=== PATIENT | male | born 1980 | race Hispanic/Latino ===

== ENCOUNTER 2023-05-26 00:26 | Inpatient (IN) | payer OTHER ==
[~2023-05-26] VITALS: Ht 188 cm; Wt 110.4 kg
[2023-05-26] VITALS (73 sets, daily range): BP systolic 95–134; BP diastolic 47–71; PULSE 66–103; RESP 13–18; O2SAT 97–100
[2023-05-26 01:19] LABS: BASOPHILS # (AUTO) 0.01 K/uL (0.00-0.20); BASOPHILS % (AUTO) 0.1 % (0.0-5.0); EOSINOPHILS # (AUTO) 0.14 K/uL (0.00-0.70); EOSINOPHILS % (AUTO) 1.2 % (0.0-8.0); IMMATURE GRANULOCYTE ABSOLUTE 0.54 K/uL (0-1); LYMPHOCYTES % (AUTO) 17.3 % (21.0-51.0); MEAN CORPUSCULAR HEMOGLOBIN 15.4 pg (27.0-33.0); MEAN CORPUSCULAR HGB CONC 24.2 g/dL (32.0-36.0); MEAN CORPUSCULAR VOLUME 63.8 fL (79-99); MONOCYTES # (AUTO) 1.9 K/uL (0.1-1.0); MONOCYTES % (AUTO) 16.8 % (3.0-13.0); NEUTROPHILS # (AUTO) 6.9 K/uL (1.8-7.7); NEUTROPHILS % (AUTO) 59.9 % (40.0-77.0); NUCLEATED RED BLOOD CELLS 7.3 % (0.0-0.19); PLATELET COUNT (AUTO) 125 K/uL (130-400); RED BLOOD CELL COUNT(AUTO) 1.88 MIL/uL (4.50-6.20); RED CELL DISTRIBUTION WIDTH 19.6 % (11.0-15.5); WHITE BLOOD COUNT (AUTO) 11.5 K/uL (4.8-10.8)
[2023-05-26] MEDS ORDERED: PANTOPRAZOLE 40 MG/VIAL ONE ×2 (01:25→06:07)
[2023-05-26] MEDS ORDERED: OCTREOTIDE ACETATE 100 MCG/ML AMP ONE (01:26)
[2023-05-26] MEDS ORDERED: OCTREOTIDE ACETATE 200 MCG/ML 5 ML VIAL ONE (01:27)
[2023-05-26 01:30] LABS: CREATININE 0.9 mg/dL (0.5-1.5); INR 1.42 (0.85-1.15); POTASSIUM 3.4 mmol/L (3.5-5.1); PROTHROMBIN TIME 16.1 SEC (9.6-11.6)
[2023-05-26] MEDS ORDERED: PANTOPRAZOLE 40MG INJ 80 MG in 0.9%NACL 100ML 100 ML IV SCH (01:30)
[2023-05-26] MEDS ORDERED: OCTREOTIDE ACETATE 1,250 MCG in 0.9% NACL 250ML 250 ML IV SCH (01:30)
[2023-05-26] MEDS ORDERED: NOREPINEPHRIN 4MG/NS 250ML 250 ML IV SCH (01:30)
[2023-05-26 01:32] LABS: PARTIAL THROMBOPLASTIN TIME 29.3 SEC (26.3-35.5)
[2023-05-26 01:35] LABS: ALBUMIN 1.9 g/dL (3.5-5.0); BILIRUBIN,TOTAL 0.7 mg/dL (0.2-1.0); TOTAL PROTEIN, SERUM 4.8 g/dL (6.0-8.3)
[2023-05-26] MEDS ORDERED: ROCURONIUM BROMIDE 100 MG in 0.9%NACL 100ML 100 ML IV SCH (01:35)
[2023-05-26] MEDS ORDERED: ETOMIDATE 20MG VIAL IVP ONE ×2 (01:35→09:13)
[2023-05-26 01:46] LABS: BAND NEUTROPHILS % (MANUAL) 5 % (0-2); BASOPHILS % (MANUAL) 1 % (0-2); LYMPHOCYTES % (MANUAL) 12 % (22-44); MAN.DIFF COMMENT-IMPRESSION MANUAL DIFFERENTIAL; METAMYELOCYTES % 4 % (0-0); MONOCYTES % (MANUAL) 9 % (2-9); SEGMENTED NEUTROPHILS % 69 % (40-70); TOTAL CELLS COUNTED 100
[2023-05-26] MEDS: MIDAZOLAM 50MG-0.9% NS 50ML 50 ML IV SCH ×4 (01:50→19:39)
[2023-05-26] MEDS: FENTANYL 1000MCG+NS 100ML 100 ML IV SCH ×5 (01:50→19:39)
[2023-05-26] MEDS ORDERED: CALCIUM GLUC 1GM/10ML VIAL ONE (02:08)
[2023-05-26] MEDS ORDERED: POTASSIUM CHLORIDE 20MEQ/100ML 100 ML IV PRN ×3 (02:30→08:00)
[2023-05-26] MEDS ORDERED: ONDANSETRON 4MG INJ IV PRN (02:30)
[2023-05-26] MEDS ORDERED: 0.9%NACL 1000ML 1,000 ML IV SCH (02:30)
[2023-05-26] MEDS ORDERED: ACETAMINOPHEN 325 MG TAB PO PRN ×2 (02:30)
[2023-05-26] MEDS ORDERED: PHYTONADIONE 10 MG/1 ML AMP IM ONE (02:30)
[2023-05-26 02:31] LABS: APPEARANCE,URINE CLEAR (CLEAR); BILIRUBIN,URINE NEGATIVE (NEGATIVE); COLOR,URINE YELLOW (YELLOW); GLUCOSE, URINE (UA) NEGATIVE (NEGATIVE); KETONES,URINE NEGATIVE (NEGATIVE); LEUKOCYTE ESTERASE ,URINE NEGATIVE Leu/uL (NEGATIVE); NITRATE,URINE NEGATIVE (NEGATIVE); OCCULT BLOOD,URINE NEGATIVE (NEGATIVE); PROTEIN,URINE 30 mg/dL (NEGATIVE); UROBILINOGEN,URINE 0.2 mg/dL (0.2-1.0)
[2023-05-26 02:34] LABS: ADD UA MICROSCOPIC YES
[2023-05-26 02:35] LABS: MUCUS,URINE RARE LPF (None Seen)
[2023-05-26 02:39] LABS: AMPHET/METH SCREEN,URINE POSITIVE (NEGATIVE); BARBITURATE SCREEN, URINE NEGATIVE (NEGATIVE); BENZODIAZEPINES SCREEN,URINE POSITIVE (NEGATIVE); CANNABINOID SCREEN,URINE POSITIVE (NEGATIVE); COCAINE SCREEN,URINE POSITIVE (NEGATIVE); OPIATE SCREEN,URINE NEGATIVE (NEGATIVE); PHENCYCLIDINE SCREEN,URINE NEGATIVE (NEGATIVE)
[2023-05-26 02:43] LABS: ABG BASE EXCESS -3.5 mmol/L (-2.0-3.0); ABG HCO3 21.9 mmol/L (21.0-28.0); ABG OXYGEN SATURATION 98.4 % (95.0-99.0); ABG PCO2 40 mmHg (35-48); ABG PH 7.351 (7.35-7.450); PO2, ARTERIAL BG 125.4 mmHg (83.0-108.0); VENT MODE, BG ACVC (ROOM AIR)
[2023-05-26] MEDS ORDERED: CALCIUM GLUC 1GM/10ML VIAL IV ONE (03:00)
[2023-05-26] MEDS ORDERED: OCTREOTIDE ACETATE 100 MCG/ML AMP IV ONE (03:00)
[2023-05-26] MEDS: PANTOPRAZOLE 40MG INJ 80 MG in 0.9%NACL 100ML 100 ML IVP SCH ×3 (03:07→08:48)
[2023-05-26] MEDS: OCTREOTIDE ACETATE 1,250 MCG in 0.9% NACL 250ML 250 ML IV SCH ×2 (03:07→08:46)
[2023-05-26] MEDS: CALCIUM GLUC 1GM 1 GM in 0.9%NACL 100ML 100 ML IV SCH ×2 (03:08→03:27)
[2023-05-26] MEDS: LACTATED RINGERS 1000ML 1,000 ML IV SCH ×3 (03:27→23:10)
[2023-05-26] MEDS ORDERED: CEFTRIAXONE 1G VIAL IVPB ONE (03:30)
[2023-05-26] MEDS ORDERED: PROPOFOL 1000 MG/100 ML 100 ML IV ONE (03:39)
[2023-05-26 03:58] LABS: BASOPHILS # (AUTO) 0.01 K/uL (0.00-0.20); BASOPHILS % (AUTO) 0.1 % (0.0-5.0); EOSINOPHILS # (AUTO) 0.06 K/uL (0.00-0.70); EOSINOPHILS % (AUTO) 0.7 % (0.0-8.0); LYMPHOCYTES # (AUTO) 1.2 K/uL (1.0-4.8); LYMPHOCYTES % (AUTO) 15.3 % (21.0-51.0); MEAN CORPUSCULAR HEMOGLOBIN 21.5 pg (27.0-33.0); MEAN CORPUSCULAR HGB CONC 29.6 g/dL (32.0-36.0); MEAN CORPUSCULAR VOLUME 72.7 fL (79-99); NEUTROPHILS # (AUTO) 5.3 K/uL (1.8-7.7); NEUTROPHILS % (AUTO) 65.9 % (40.0-77.0); NUCLEATED RED BLOOD CELLS 4.6 % (0.0-0.19); PLATELET COUNT (AUTO) 101 K/uL (130-400); RED BLOOD CELL COUNT(AUTO) 2.56 MIL/uL (4.50-6.20); RED CELL DISTRIBUTION WIDTH 26.5 % (11.0-15.5)
[2023-05-26] MEDS ORDERED: PROPOFOL 1000 MG/100 ML 1,000 MG in PROPOFOL 1000 MG/100 ML 100 ML IV PRN (04:00)
[2023-05-26 04:08] LABS: HEMATOCRIT 18.6 % (42-54)
[2023-05-26 04:16] LABS: INR 1.34 (0.85-1.15); PROTHROMBIN TIME 15.3 SEC (9.6-11.6)
[2023-05-26 04:32] LABS: ALBUMIN 2.1 g/dL (3.5-5.0); BILIRUBIN,TOTAL 1.3 mg/dL (0.2-1.0); CREATININE 0.7 mg/dL (0.5-1.5); MAGNESIUM 1.6 mg/dL (1.80-2.40); POTASSIUM 3.9 mmol/L (3.5-5.1)
[2023-05-26] MEDS ORDERED: IOHEXOL-350 75 ML VIAL IV ONE (04:33)
[2023-05-26] MEDS ORDERED: PHARMACY COMMUNICATION MISC PRN (08:00)
[2023-05-26] MEDS ORDERED: KCL 20 MEQ ERTAB PO PRN (08:00)
[2023-05-26] MEDS ORDERED: CHLORDIAZEPOXIDE HCL 25 MG CAP PO PRN ×2 (08:00)
[2023-05-26] MEDS ORDERED: MAGNESIUM 2GM PREMIX 50ML 50 ML IV PRN (08:00)
[2023-05-26] MEDS ORDERED: LORAZEPAM 2 MG/ML 1 ML VIAL IVP PRN ×2 (08:00)
[2023-05-26 08:08] LABS: HEMATOCRIT 24.1 % (42-54)
[2023-05-26 08:11] LABS: ABG BASE EXCESS -4.2 mmol/L (-2.0-3.0); ABG HCO3 21.2 mmol/L (21.0-28.0); ABG OXYGEN SATURATION 98.1 % (95.0-99.0); ABG PCO2 40 mmHg (35-48); ABG PH 7.341 (7.35-7.450); CARBON MONOXIDE 1.6; HHb 1.9; PO2, ARTERIAL BG 125.8 mmHg (83.0-108.0); VENT MODE, BG RR (ROOM AIR)
[2023-05-26] MEDS: FOLIC ACID 5 MG/ML VIAL IV SCH (08:40)
[2023-05-26] MEDS: THIAMINE HCL 100 MG, FOLIC ACID 1 MG, M.V.I. IV [ADULT] 10 ML in 0.9%NACL 1000ML 1,000 ML IV SCH (08:42)
[2023-05-26] MEDS: THIAMINE HCL 100 MG/ML 2ML VIAL IVP SCH (08:44)
[2023-05-26] MEDS ORDERED: ROCURONIUM BROMIDE 10MG/1ML 5ML VL IV ONE (09:13)
[2023-05-26] MEDS: MAGNESIUM 2GM PREMIX 50ML 50 ML IV PRN (13:01)
[2023-05-26 13:14] LABS: HEMATOCRIT 23.2 % (42-54)
[2023-05-26 18:16] LABS: HEMATOCRIT 21.9 % (42-54)
[2023-05-26] MEDS ORDERED: COMPOUND IV REFRIGERATED 1 EACH IVSOLN MISC PRN (20:00)
[2023-05-26] MEDS ORDERED: PHARMACY COMMUNICATION MISC SCH (20:00)
[2023-05-26] MEDS: ZOSYN 3.375GM +NS 50ML IVPB SCH (23:58)
[2023-05-27] VITALS (63 sets, daily range): BP systolic 93–127; BP diastolic 50–72; PULSE 68–82; RESP 10–25; O2SAT 94–100
[2023-05-27] MEDS ORDERED: 0.9%NACL 50ML IV SCH
[2023-05-27 01:17] LABS: HEMATOCRIT 23.3 % (42-54)
[2023-05-27] MEDS: PANTOPRAZOLE 40MG INJ 80 MG in 0.9%NACL 100ML 100 ML IVP SCH (02:26)
[2023-05-27] MEDS: FENTANYL 1000MCG+NS 100ML 100 ML IV SCH (04:51)
[2023-05-27] MEDS: MIDAZOLAM 50MG-0.9% NS 50ML 50 ML IV SCH (06:02)
[2023-05-27 06:39] LABS: BASOPHILS # (AUTO) 0.03 K/uL (0.00-0.20); BASOPHILS % (AUTO) 0.4 % (0.0-5.0); EOSINOPHILS # (AUTO) 0.24 K/uL (0.00-0.70); EOSINOPHILS % (AUTO) 3.2 % (0.0-8.0); HEMATOCRIT 25.1 % (42-54); LYMPHOCYTES # (AUTO) 1.6 K/uL (1.0-4.8); LYMPHOCYTES % (AUTO) 21.8 % (21.0-51.0); MEAN CORPUSCULAR HEMOGLOBIN 24.5 pg (27.0-33.0); MEAN CORPUSCULAR HGB CONC 31.5 g/dL (32.0-36.0); MONOCYTES % (AUTO) 13.8 % (3.0-13.0); NEUTROPHILS # (AUTO) 4.5 K/uL (1.8-7.7); NEUTROPHILS % (AUTO) 59.5 % (40.0-77.0); NUCLEATED RED BLOOD CELLS 5.6 % (0.0-0.19); PLATELET COUNT (AUTO) 87 K/uL (130-400); RED BLOOD CELL COUNT(AUTO) 3.22 MIL/uL (4.50-6.20); RED CELL DISTRIBUTION WIDTH 22.5 % (11.0-15.5); WHITE BLOOD COUNT (AUTO) 7.5 K/uL (4.8-10.8)
[2023-05-27] MEDS: LACTATED RINGERS 1000ML 1,000 ML IV SCH ×3 (06:40→19:30)
[2023-05-27 07:01] LABS: ALBUMIN 2.1 g/dL (3.5-5.0); BILIRUBIN,TOTAL 1.7 mg/dL (0.2-1.0); CREATININE 0.7 mg/dL (0.5-1.5); TOTAL PROTEIN, SERUM 4.9 g/dL (6.0-8.3)
[2023-05-27 07:22] LABS: BAND NEUTROPHILS % (MANUAL) 1 % (0-2); BASOPHILS % (MANUAL) 1 % (0-2); EOSINOPHILS % (MANUAL) 3 % (1-6); LYMPHOCYTES % (MANUAL) 19 % (22-44); MAN.DIFF COMMENT-IMPRESSION MANUAL DIFFERENTIAL; MONOCYTES % (MANUAL) 11 % (2-9); PLATELET MORPHOLOGY COMMENT DECREASED; SEGMENTED NEUTROPHILS % 65 % (40-70); TOTAL CELLS COUNTED 100
[2023-05-27] MEDS: ZOSYN 3.375GM +NS 50ML IVPB SCH ×3 (07:40→23:07)
[2023-05-27] MEDS: THIAMINE HCL 100 MG/ML 2ML VIAL IVP SCH (07:40)
[2023-05-27] MEDS: PANTOPRAZOLE 40 MG/VIAL IVP SCH ×2 (08:32→21:05)
[2023-05-27] MEDS: FOLIC ACID 5 MG/ML VIAL IV SCH (08:32)
[2023-05-27] MEDS: THIAMINE HCL 100 MG, FOLIC ACID 1 MG, M.V.I. IV [ADULT] 10 ML in 0.9%NACL 1000ML 1,000 ML IV SCH (08:34)
[2023-05-27 11:56] LABS: HEMATOCRIT 23.2 % (42-54)
[2023-05-27 12:35] LABS: ABG BASE EXCESS -2.4 mmol/L (-2.0-3.0); ABG OXYGEN SATURATION 96.2 % (95.0-99.0); ABG PCO2 37 mmHg (35-48); DEVICE COMMENT RR; PO2, ARTERIAL BG 83.4 mmHg (83.0-108.0); VENT MODE, BG CPAP PS10 (ROOM AIR)
[2023-05-27 21:20] LABS: HEMATOCRIT 24.3 % (42-54)
[2023-05-28] VITALS (23 sets, daily range): BP systolic 113–147; BP diastolic 62–88; PULSE 79–88; RESP 15–29; O2SAT 92–95
[2023-05-28] MEDS: LACTATED RINGERS 1000ML 1,000 ML IV SCH ×2 (03:15→11:22)
[2023-05-28] MEDS: OCTREOTIDE ACETATE 1,250 MCG in 0.9% NACL 250ML 250 ML IV SCH (03:16)
[2023-05-28 04:03] LABS: ALBUMIN 1.9 g/dL (3.5-5.0); CREATININE 0.7 mg/dL (0.5-1.5); MAGNESIUM 1.8 mg/dL (1.80-2.40); POTASSIUM 3.5 mmol/L (3.5-5.1)
[2023-05-28 04:08] LABS: BASOPHILS # (AUTO) 0.02 K/uL (0.00-0.20); BASOPHILS % (AUTO) 0.4 % (0.0-5.0); EOSINOPHILS # (AUTO) 0.14 K/uL (0.00-0.70); EOSINOPHILS % (AUTO) 2.5 % (0.0-8.0); HEMATOCRIT 25.1 % (42-54); IMMATURE GRANULOCYTE ABSOLUTE 0.09 K/uL (0-1); LYMPHOCYTES # (AUTO) 1.3 K/uL (1.0-4.8); MEAN CORPUSCULAR HEMOGLOBIN 24.3 pg (27.0-33.0); MEAN CORPUSCULAR HGB CONC 31.1 g/dL (32.0-36.0); MEAN CORPUSCULAR VOLUME 78.2 fL (79-99); MONOCYTES # (AUTO) 0.7 K/uL (0.1-1.0); MONOCYTES % (AUTO) 11.9 % (3.0-13.0); NEUTROPHILS # (AUTO) 3.4 K/uL (1.8-7.7); NEUTROPHILS % (AUTO) 60.6 % (40.0-77.0); NUCLEATED RED BLOOD CELLS 2.8 % (0.0-0.19); PLATELET COUNT (AUTO) 83 K/uL (130-400); RED BLOOD CELL COUNT(AUTO) 3.21 MIL/uL (4.50-6.20); RED CELL DISTRIBUTION WIDTH 23.9 % (11.0-15.5); WHITE BLOOD COUNT (AUTO) 5.6 K/uL (4.8-10.8)
[2023-05-28] MEDS: ZOSYN 3.375GM +NS 50ML IVPB SCH (08:10)
[2023-05-28] MEDS: THIAMINE HCL 100 MG/ML 2ML VIAL IVP SCH (08:10)
[2023-05-28] MEDS: FOLIC ACID 5 MG/ML VIAL IV SCH (08:10)
[2023-05-28] MEDS: PANTOPRAZOLE 40 MG/VIAL IVP SCH ×2 (08:10→20:27)
[2023-05-28] MEDS: MAGNESIUM 2GM PREMIX 50ML 50 ML IV PRN (08:11)
[2023-05-28] MEDS: THIAMINE HCL 100 MG, FOLIC ACID 1 MG, M.V.I. IV [ADULT] 10 ML in 0.9%NACL 1000ML 1,000 ML IV SCH (09:15)
[2023-05-28] MEDS: CEFTRIAXONE 2GM VIAL IVPB SCH (11:22)
[2023-05-28] MEDS: LEVOFLOXACIN 500 MG TABLET PO SCH (11:22)
[2023-05-28 11:30] LABS: HEMATOCRIT 28.2 % (42-54)
[2023-05-28 17:15] LABS: HEMATOCRIT 25.7 % (42-54)
[2023-05-28] MEDS: CALCIUM GLUC 1GM 1 GM in 0.9%NACL 100ML 100 ML IV SCH ×2 (21:12→22:36)
[2023-05-29] MEDS: LACTATED RINGERS 1000ML 1,000 ML IV SCH ×2 (00:08→05:03)
[2023-05-29] MEDS: POTASSIUM CHLORIDE 10% ELIXIR 20 MEQ/15 ML UDCUP PO PRN ×2 (00:43→03:34)
[2023-05-29 04:37] VITALS: BP 125/69; PULSE 82; RESP 20
[2023-05-29 06:10] LABS: HEMATOCRIT 26.3 % (42-54); MEAN CORPUSCULAR HEMOGLOBIN 24.4 pg (27.0-33.0); MEAN CORPUSCULAR HGB CONC 30.8 g/dL (32.0-36.0); MEAN CORPUSCULAR VOLUME 79.2 fL (79-99); NUCLEATED RED BLOOD CELLS 1.2 % (0.0-0.19); PLATELET COUNT (AUTO) 75 K/uL (130-400); RED BLOOD CELL COUNT(AUTO) 3.32 MIL/uL (4.50-6.20); WHITE BLOOD COUNT (AUTO) 4.8 K/uL (4.8-10.8)
[2023-05-29 06:26] LABS: BILIRUBIN,TOTAL 0.9 mg/dL (0.2-1.0); CREATININE 0.6 mg/dL (0.5-1.5); MAGNESIUM 1.7 mg/dL (1.80-2.40); POTASSIUM 3.7 mmol/L (3.5-5.1); TOTAL PROTEIN, SERUM 5.2 g/dL (6.0-8.3)
[2023-05-29 08:00] VITALS: BP 135/78; PULSE 82; RESP 16; O2SAT 92
[2023-05-29] MEDS: PANTOPRAZOLE 40 MG/VIAL IVP SCH (09:56)
[2023-05-29 12:00] VITALS: BP 130/66; PULSE 84; RESP 18
[2023-05-29] MEDS: CEFTRIAXONE 2GM VIAL IVPB SCH (13:50)
[2023-05-29] MEDS: LEVOFLOXACIN 500 MG TABLET PO SCH (13:50)
[2023-05-29] MEDS ORDERED: PANT40TA55 PO (14:30)
[2023-05-29] MEDS ORDERED: MAGNESIUM 2GM PREMIX 50ML 50 ML IV SCH (14:30)
[2023-05-29] MEDS ORDERED: LEVO750T39 PO (14:31)
[2023-05-29] MEDS ORDERED: CEFD300C3 PO (14:32)
[2023-05-29 16:00] VITALS: BP 136/59; PULSE 85; RESP 20
== END 2023-05-29 17:50 | disposition home or self-care (01) | DRG 432 ==
LOC: EDH 00:26 → EDHIP 00:27 → 2CH 05:29 → 3CH 05-28 15:11
PROVIDERS: ADMIT Internal Medicine; ATTEND Internal Medicine
PROC: 06L38CZ Occlusion of Esophageal Vein with Extraluminal Device, Via Natural or Artificial Opening Endoscopic (ICD-10-PCS; principal; 2023-05-26)
PROC: 0BH17EZ Insertion of Endotracheal Airway into Trachea, Via Natural or Artificial Opening (ICD-10-PCS; 2023-05-26)
PROC: 5A1935Z Respiratory Ventilation, Less than 24 Consecutive Hours (ICD-10-PCS; 2023-05-26)
PROC: 30233K1 Transfusion of Nonautologous Frozen Plasma into Peripheral Vein, Percutaneous Approach (ICD-10-PCS; 2023-05-26)
PROC: 30233R1 Transfusion of Nonautologous Platelets into Peripheral Vein, Percutaneous Approach (ICD-10-PCS; 2023-05-26)
PROC: 30233N1 Transfusion of Nonautologous Red Blood Cells into Peripheral Vein, Percutaneous Approach (ICD-10-PCS; 2023-05-26)
PROC: 5A09357 Assistance with Respiratory Ventilation, Less than 24 Consecutive Hours, Continuous Positive Airway Pressure (ICD-10-PCS; 2023-05-27)
DX: K70.30 Alcoholic cirrhosis of liver without ascites (principal); I85.11 Secondary esophageal varices with bleeding; J96.01 Acute respiratory failure with hypoxia; R57.8 Other shock; R78.81 Bacteremia; D62 Acute posthemorrhagic anemia; D69.6 Thrombocytopenia, unspecified; D72.828 Other elevated white blood cell count; E83.51 Hypocalcemia; F14.10 Cocaine abuse, uncomplicated; F12.10 Cannabis abuse, uncomplicated; B96.89 Other specified bacterial agents as the cause of diseases classified elsewhere; E87.6 Hypokalemia; E88.09 Other disorders of plasma-protein metabolism, not elsewhere classified; Z82.49 Family history of ischemic heart disease and other diseases of the circulatory system
CPT/HCPCS: 31500; 36415; 36430; 36600; 43244; 70450; 71045; 74177; 80053; 80305; 81001; 82140; 82270; 82330; 82435; 82803; 82947; 82948; 83605; 83735; 84100; 84132; 84295; 84484; 85014; 85018; 85025; 85027; 85384; 85610; 85730; 86850; 86900; 86901; 86922; 86923; 86927; 87040; 87071; 87077; 87186; 87205; 93005; 94002; 94003; 94150; 99291; 99292; C9113; G0378; J0610; J0696; J2354; J2543; J2704; J3010; J3411; J3430; J3475; J3490; J7030; J7050; J7120; P9016; P9017; P9034; Q9967; A4216; A4222; A4223; A7002; A9900